=== PATIENT | female | born 1955 | race Caucasian/White ===

== ENCOUNTER 2016-05-16 10:02 | Outpatient (CLI) | payer OTHER ==
[2016-05-16] MEDS ORDERED: REGADENOSON 0.4 MG/5 ML SYRINGE IVP ONE (13:26)
== END 2016-05-16 10:03 | disposition home or self-care (01) ==
DX: I10 Essential (primary) hypertension (principal); E78.2 Mixed hyperlipidemia; R06.00 Dyspnea, unspecified; Z01.812 Encounter for preprocedural laboratory examination
CPT/HCPCS: 78452; 93017; A9500; J2785

== ENCOUNTER 2016-05-30 12:13 | Outpatient (CLI) | payer OTHER | END 2016-05-30 12:14 | disposition home or self-care (01) | DX: R60.0 Localized edema (principal) ==

== ENCOUNTER 2016-10-28 13:24 | Outpatient (CLI) | payer OTHER ==
--- NOTE | 2016-10-31 16:47 | Mammography Report ---
DIGITAL SCREENING MAMMOGRAM: 10/28/2016 CLINICAL INDICATION: A 61-year-old with history of late childbearing, for screening. COMPARISON: 08/2015, 06/2014, 04/2013, 03/2012, 10/2010, 10/2009, 08/2008, 07/2007, 07/2006. TECHNIQUE: Routine CC and MLO projections were obtained of the breasts. Bilateral laterally exaggera francisca craniocaudal views. FINDINGS: The breasts again demonstrate heterogeneously dense fibroglandular parenchyma bilaterally. Punctate, typically benign calcifications are present. No suspicious masses, clustered microcalcific ations, or regions of architectural distortion are identified. IMPRESSION: BENIGN FINDINGS. RECOMMENDATION: ROUTINE ANNUAL SCREENING UNLESS OTHERWISE CLINICALLY INDICATED. BIRADS CATEGORY 2-BENIGN FINDINGS. STANDARD QUALIFYING STATEMENTS 1. This examination was reviewed with the aid of Computer-Aided Detection (CAD). 2. A negative or benign imaging report should not delay biopsy if clinically suspicious findings are present. Consider surgical consultation if warranted. More than 5% of cancers are not identified by i maging. 3. Dense breasts may obscure an underlying neoplasm. JOB #: [id number] EXT JOB #:[id number]
== END 2016-10-28 13:25 | disposition home or self-care (01) ==
LOC: DI 13:24
PROVIDERS: ATTEND Obstetrics & Gynecology
DX: Z12.31 Encounter for screening mammogram for malignant neoplasm of breast (principal)
CPT/HCPCS: 77067

== ENCOUNTER 2017-10-31 15:36 | Outpatient (CLI) | payer OTHER ==
--- NOTE | 2017-11-02 16:27 | Mammography Report ---
Procedure Date: 10/31/2017 Accession Number: [id number] / [id number] Procedure: MGN - Screening Mammo Dig Bilat CPT Code: FULL RESULT: EXAM: Screening Mammo Dig Bilat DATE: 10/31/2017 3:51 PM CLINICAL HISTORY: 62-year-old female with history of late childbearing an early menses presents for screening mammogram. TECHNIQUE: Bilateral CC and MLO views were obtained. COMPARISON: 10/28/2016, 08/19/2015, 06/17/2014, 04/18/2013. FINDINGS: The breasts demonstrate heterogeneously dense fibroglandular parenchyma bilaterally. No suspicious masses, clustered microcalcifications, or regions of architectural distortion are identified. IMPRESSION: Negative examination RECOMMENDATION: Routine annual screening unless otherwise clinically indicated. BIRADS CATEGORY 1: Negative STANDARD QUALIFYING STATEMENTS: 1. This examination was reviewed with the aid of Computer-Aided Detection (CAD). 2. A negative or benign imaging report should not delay biopsy if clinically suspicious findings are present. Consider surgical consultation if warrented. More than 5% of cancers are not identified by imaging. 3. Dense breasts may obscure an underlying neoplasm.
== END 2017-10-31 15:37 | disposition home or self-care (01) ==
LOC: DI.N 15:36
PROVIDERS: ATTEND Obstetrics & Gynecology
DX: Z12.31 Encounter for screening mammogram for malignant neoplasm of breast (principal)
CPT/HCPCS: 77067

== ENCOUNTER 2018-02-19 08:36 | Outpatient (CLI) | payer OTHER ==
[2018-02-19 08:49] LABS: BASOPHILS # (AUTO) 0.1 10^3/uL (0.0-0.1); BASOPHILS % (AUTO) 1.2 %; EOSINOPHILS # (AUTO) 0.1 10^3/uL (0.0-0.7); EOSINOPHILS % (AUTO) 2.3 %; HGB - HEMOGLOBIN 13.7 g/dL (12.0-16.0); LYMPHOCYTES # (AUTO) 1.8 10^3/uL (1.5-3.5); LYMPHOCYTES % (AUTO) 29.3 %; MEAN CORPUSCULAR HEMOGLOBIN 30.1 pg (27.0-31.0); MEAN CORPUSCULAR HGB CONC 33.7 g/dL (32.0-36.0); MEAN CORPUSCULAR VOLUME 89.2 fL (81.0-99.0); MEAN PLATELET VOLUME 7.3 fL (7.9-10.8); MONOCYTES # (AUTO) 0.5 10^3/uL (0.0-1.0); NEUTROPHILS # (AUTO) 3.5 10^3/uL (1.5-6.6); NEUTROPHILS % (AUTO) 58.2 %; PLT - PLATELET COUNT 329 10^3/uL (130-450); RED BLOOD COUNT 4.54 10^6/uL (4.20-5.40); RED CELL DISTRIBUTION WIDTH 14.3 % (12.0-15.0)
[2018-02-19 09:06] LABS: ALBUMIN 4.2 g/dL (3.2-5.5); ALBUMIN/GLOBULIN RATIO 1.3 (1.0-2.2); ALKALINE PHOSPHATASE 69 IU/L (42-121); ALT ALANINE AMINOTRANSFERASE 17 IU/L (10-60); AST ASPARTATE AMINOTRANSFERASE 20 IU/L (10-42); BILIRUBIN,TOTAL 0.7 mg/dL (0.2-1.0); BUN - BLOOD UREA NITROGEN 19 mg/dL (6-20); CALCIUM 9.1 mg/dL (8.5-10.3); CARBON DIOXIDE - CO2 28 mmol/L (21-32); CHLORIDE 103 mmol/L (101-111); CHOL/HDL RATIO 3.5 (<4.4); CHOLESTEROL 241 mg/dL; CREATININE 0.8 mg/dL (0.4-1.0); GFR - MDRD 72 (>89); GLUCOSE 116 mg/dL (70-100); HDL CHOLESTEROL 69 mg/dL; LDL CHOLESTEROL,CALCULATED 143 mg/dL; LDL/HDL RATIO 2.1 (<4.4); SODIUM 139 mmol/L (135-145); TOTAL PROTEIN 7.4 g/dL (6.7-8.2); VLDL CHOLESTEROL 29 mg/dL
[2018-02-19 09:16] LABS: HB2 TOTAL 14.6 g/dL; HEMOGLOBIN A1C 0.64 g/dL; HEMOGLOBIN A1C % 6.2 % (4.6-6.2)
== END 2018-02-19 08:37 | disposition home or self-care (01) ==
LOC: LAB 08:36
PROVIDERS: ATTEND Internal Medicine
DX: E88.81 Metabolic syndrome and other insulin resistance (principal); E78.5 Hyperlipidemia, unspecified; I10 Essential (primary) hypertension; Z79.899 Other long term (current) drug therapy
CPT/HCPCS: 36415; 80053; 80061; 83036; 83721; 84443; 85025

== ENCOUNTER 2018-09-26 11:49 | Day surgery (SDC) | payer MEDICARE, OTHER ==
[2018-09-26] MEDS ORDERED: LACTATED RINGERS 1,000 ML IV ONE (12:43)
[2018-09-26] MEDS ORDERED: fentaNYL 250 MCG/5 ML VIAL IVP ONE (13:32)
[2018-09-26] MEDS ORDERED: MIDAZOLAM 2 MG/2 ML VIAL IVP ONE (13:32)
[2018-09-26 14:38] VITALS: BP 107/62
== END 2018-09-26 11:50 | disposition home or self-care (01) ==
LOC: SDS 11:49
PROVIDERS: ATTEND Internal Medicine
PROC: 0DJ08ZZ Inspection of Upper Intestinal Tract, Via Natural or Artificial Opening Endoscopic (ICD-10-PCS; principal; 2018-09-26 13:00)
PROC: 0DJD8ZZ Inspection of Lower Intestinal Tract, Via Natural or Artificial Opening Endoscopic (ICD-10-PCS; 2018-09-26 13:00)
DX: Z12.11 Encounter for screening for malignant neoplasm of colon (principal); K57.30 Diverticulosis of large intestine without perforation or abscess without bleeding; K64.1 Second degree hemorrhoids; K21.9 Gastro-esophageal reflux disease without esophagitis; R13.10 Dysphagia, unspecified
CPT/HCPCS: 43235; G0121; J3010; J7120

== ENCOUNTER 2018-11-08 15:08 | Outpatient (CLI) | payer MEDICARE, OTHER ==
--- NOTE | 2018-11-09 07:15 | Ultrasound Report ---
Reason: DYSURIA, PELVIC PAIN Procedure Date: 11/08/2018 Accession Number: [id number] / [id number] Procedure: US - Pelvic w/Transvaginal CPT Code: FULL RESULT: EXAM: PELVIC ULTRASOUND EXAM DATE: 11/08/2018 03:19 PM CLINICAL HISTORY: Dysuria, pelvic pain. COMPARISON: PELVIC 07/07/2007 9:31 AM. TECHNIQUE: Real-time transabdominal pelvic scan performed to identify the uterus and adnexa and as an overview of other pelvic structures, followed by transvaginal scan to provide greater detail of the uterus and adnexa, with static image documentation. FINDINGS: Uterus: 7.4 x 2.3 x 4.9 cm, volume 44.3 cc. Anteverted position. Normal overall size and echotexture. Masses: None. Endometrium: 2.4 mm. No endometrial mass or polyp. Cervix: Unremarkable. Right Ovary: 2.4 x 0.9 x 1.4 cm, volume 1.7 cc. Normal echotexture and blood flow. Left Ovary: Prominent vessels noted in the left adnexa. Ovary not seen. No adnexal abnormality. Limitation secondary to bowel gas. Free Fluid: None. Other: None. IMPRESSION: 1. No uterine mass. 2. Endometrium measures 2.4 mm in thickness. No mass or polyp. 3. Left ovary not seen. Prominent left adnexal vessels of unclear significance. Normal right ovary and adnexa. RADIA
== END 2018-11-08 15:09 | disposition home or self-care (01) ==
LOC: DI 15:08
PROVIDERS: ATTEND Obstetrics & Gynecology
DX: R30.0 Dysuria (principal); R10.2 Pelvic and perineal pain
CPT/HCPCS: 76830; 76856

== ENCOUNTER 2018-11-08 15:09 | Outpatient (CLI) | payer MEDICARE, OTHER ==
--- NOTE | 2018-11-12 09:03 | Mammography Report ---
Reason: SCREENING MAMMO Procedure Date: 11/08/2018 Accession Number: [id number] / [id number] Procedure: [facility] - Screening Mammo w/[facility]on CPT Code: FULL RESULT: EXAM: Screening Mammo w/E[facility]on DATE: 11/08/2018 4:20 PM CLINICAL HISTORY: Screening encounter. History of early menses and late childbearing. TECHNIQUE: (B) - Bilateral CC and MLO views were obtained. A right laterally exaggerated CC views obtained. COMPARISON: 10/31/2017 through 06/17/2014. PARENCHYMAL PATTERN: (A) - The breast(s) demonstrate(s) scattered fibroglandular densities. FINDINGS: There are no suspicious masses, calcifications, or areas of distortion. IMPRESSION: Negative examination. BI-RADS category 1. RECOMMENDATION: (ANNUAL) - Recommend routine annual screening mammography. BI-RADS CATEGORY: (1) - Negative. STANDARD QUALIFYING STATEMENTS: 1. This examination was not reviewed with the aid of Computer-Aided Detection (CAD). 2. A negative or benign imaging report should not preclude biopsy if clinically suspicious findings are present. 3. Dense breasts may obscure an underlying neoplasm. 4. This examination was reviewed with the aid of 3D breast imaging (tomosynthesis).
== END 2018-11-08 15:10 | disposition home or self-care (01) ==
LOC: DI 15:09
PROVIDERS: ATTEND Obstetrics & Gynecology
DX: Z12.31 Encounter for screening mammogram for malignant neoplasm of breast (principal)
CPT/HCPCS: 77063; 77067

== ENCOUNTER 2019-01-11 10:39 | Outpatient (CLI) | payer MEDICARE, OTHER ==
--- NOTE | 2019-01-11 11:22 | XRAY Report ---
Reason: FRACTURE Procedure Date: 01/11/2019 Accession Number: [id number] / [id number] Procedure: XR - Foot 3 View LT CPT Code: FULL RESULT: EXAM: LEFT FOOT RADIOGRAPHY EXAM DATE: 01/11/2019 10:57 AM. CLINICAL HISTORY: FRACTURE. COMPARISON: None. TECHNIQUE: 1 views. FINDINGS: Bones: On limited single view evaluation, there is a nondisplaced transverse fracture of the left fifth metatarsal base. No other obvious abnormalities on limited evaluation. Joints: Normal. No subluxations. Soft Tissues: Normal. No soft tissue swelling. IMPRESSION: Limited evaluation reveals a nondisplaced transverse fracture of the left fifth metatarsal base. RADIA
== END 2019-01-11 10:40 | disposition home or self-care (01) ==
LOC: DI 10:39
PROVIDERS: ATTEND Orthopaedic Surgery
DX: S92.355A Nondisplaced fracture of fifth metatarsal bone, left foot, initial encounter for closed fracture (principal)

== ENCOUNTER 2019-02-16 12:53 | Emergency (ER) | payer MEDICARE, OTHER ==
[2019-02-16 12:59] VITALS: BP 160/94
[2019-02-16 13:25] LABS: BASOPHILS # (AUTO) 0.1 10^3/uL (0.0-0.1); BASOPHILS % (AUTO) 0.6 %; EOSINOPHILS # (AUTO) 0.1 10^3/uL (0.0-0.7); EOSINOPHILS % (AUTO) 0.8 %; HGB - HEMOGLOBIN 13.5 g/dL (12.0-16.0); LYMPHOCYTES # (AUTO) 1.6 10^3/uL (1.5-3.5); LYMPHOCYTES % (AUTO) 19.2 %; MEAN CORPUSCULAR HEMOGLOBIN 30.3 pg (27.0-31.0); MEAN CORPUSCULAR HGB CONC 32.1 g/dL (32.0-36.0); MEAN CORPUSCULAR VOLUME 94.6 fL (81.0-99.0); MEAN PLATELET VOLUME 8.9 fL (7.9-10.8); MONOCYTES # (AUTO) 0.6 10^3/uL (0.0-1.0); MONOCYTES % (AUTO) 7.3 %; NEUTROPHILS % (AUTO) 71.6 %; PLT - PLATELET COUNT 330 10^3/uL (130-450); RED BLOOD COUNT 4.45 10^6/uL (4.20-5.40); RED CELL DISTRIBUTION WIDTH 14.1 % (12.0-15.0); WHITE BLOOD COUNT 8.4 x10^3/uL (4.8-10.8)
[2019-02-16 13:33] LABS: INR 1.1 (0.8-1.2); PT - PROTHROMBIN TIME 12.2 secs (9.9-12.6)
[2019-02-16 13:47] LABS: ALBUMIN 4.6 g/dL (3.2-5.5); ALBUMIN/GLOBULIN RATIO 1.6 (1.0-2.2); BILIRUBIN,TOTAL 0.5 mg/dL (0.2-1.0); CALCIUM 9.6 mg/dL (8.5-10.3); CREATININE 0.7 mg/dL (0.4-1.0); TOTAL PROTEIN 7.4 g/dL (6.7-8.2)
--- NOTE | 2019-02-16 15:19 | Ultrasound Report ---
Reason: Right leg pain and swelling Procedure Date: 02/16/2019 Accession Number: [id number] / [id number] Procedure: US - Duplex Ext Veins Right CPT Code: Final Report FULL RESULT: EXAM: RIGHT LOWER EXTREMITY VENOUS ULTRASOUND EXAM DATE: 02/16/2019 02:53 PM. CLINICAL HISTORY: Right leg pain and swelling. COMPARISON: None. TECHNIQUE: Real-time sonographic vascular imaging was performed by the optomechanical engineer through the lower extremity utilizing both color-flow and Doppler spectral analysis. Multiple [employer] liqu[employer] sales representative static images were saved for review. FINDINGS: Common Femoral Vein (CFV): Normal. CFV-GSV Junction: Normal. Profunda Femoral Vein (PFV): Normal. Femoral Vein (FV) Prox: Normal. Femoral Vein (FV) Mid: Normal. Femoral Vein (FV) Dist: Normal. Popliteal Vein: Limited evaluation shows no thrombus Posterior Tibial Veins: Limited evaluation shows no thrombus Peroneal Veins: Limited evaluation shows no thrombus Other: 2.1 x 1.6 x 2 cm fluid collection seen in the medial aspect of the right knee. IMPRESSION: 1. No evidence of right lower extremity DVT. 2. 2.1 cm fluid collection in the medial aspect of the knee is of unclear etiology. RADIA
--- NOTE | 2019-02-16 17:01 | ED Physician Documentation ---
History of Present Illness - Stated complaint Stated Complaint: RT LEG PX - Chief complaint Chief Complaint: Ext Problem - Additonal information Additional information: This is a 64-year-old female presents with right leg swelling. She had a metacarpal fracture in the left foot which was treated with a boot, she is now out of the boot, but she noticed some swelling of her right leg for last several days. Her is an orthopedist, and they are both aware of potential symptoms of DVT, given her recent surgery they wanted to make sure she did not have a DVT. She denies any chest pain or shortness of breath. She has never had a blood clot before. She is not on any blood thinners.No fever or redness in the leg Review of Systems Constitutional: denies: Fever Musculoskeletal: reports: Extremity swelling PD PAST MEDICAL HISTORY - Past Medical History Cardiovascular: Hypertension Respiratory: None Endocrine/Autoimmune: None GI: GERD : None HEENT: None Psych: None Musculoskeletal: Osteoarthritis Derm: None - Past Surgical History General: Other Ortho: Hip replacement, Knee replacement, Rotator cuff repair - Present Medications Home Medications: Ambulatory Orders Medication Instructions Recorded Confirmed Enalapril Maleate 10 mg PO DAILY 09/26/18 09/26/18 - Allergies Allergies/Adverse Reactions: Allergies Allergy/AdvReac Type Severity Reaction Status Date / Time No Known Drug Allergies Allergy Verified 02/16/19 12:57 PD ED PE NORMAL - General General: Alert and oriented X 3 - Respiratory Respiratory: No respiratory distress - Derm Derm: Warm and dry - Extremities Extremities: Other (trace edema around the right ankle. No palpable cord or obvious calf tenderness. Mild tednerness in the popliteal fossa. Normal perfusion/brisk capillary refill) - Neuro Neuro: Alert and oriented X 3 - Psych Psych: Normal mood, Normal affect Results - Vitals Vitals: Oxygen O2 Source Room air - Labs Labs: Laboratory Tests 02/16/19 02/16/19 02/16/19 13:20 13:20 13:20 WBC 8.4 RBC 4.45 Hgb 13.5 Hct 42.1 MCV 94.6 MCH 30.3 MCHC 32.1 RDW 14.1 Plt Count 330 MPV 8.9 Neut # (Auto) 6.0 Lymph # (Auto) 1.6 Chester # (Auto) 0.6 Eos # (Auto) 0.1 Baso # (Auto) 0.1 Absolute Nucleated RBC 0.00 Nucleated RBC % 0.0 PT 12.2 INR 1.1 Sodium 141 Potassium 4.5 Chloride 105 Carbon Dioxide 28 Anion Gap 8.0 BUN 23 H Creatinine 0.7 Estimated GFR (MDRD) 84 L Glucose 134 H Calcium 9.6 Total Bilirubin 0.5 AST 17 ALT 17 Alkaline Phosphatase 59 Total Protein 7.4 Albumin 4.6 Globulin 2.8 Albumin/Globulin Ratio 1.6 Lipase 35 - Rads (name of study) DVT US RLE Radiology: Other (No DVT in areas imaged) PD MEDICAL DECISION MAKING - ED course ED course: Pt presents with R leg swelling, on exam this is very mild, no signs of infection. Neurovascularly intact. DVT scan negative. I discussed this result as well as the need for continued follow up and consideration of repeat US in the next 1-2 weeks with her PCP. Patient and her agreed and were discharged home. Departure - Departure Disposition: 01 Home, Self Care Clinical Impression: Right leg swelling Condition: Good Follow-Up: Shamar Yates MD [Primary Care Provider] - Comments: You were seen today for swelling in your right leg. Your ultrasound does not show signs of a blood clot. Please follow-up with your primary care provider, it may be worth getting a repeat ultrasound in 1 to 2 weeks, particularly if you are having any continued symptoms. If you develop any increasing leg swelling, redness, pain, or other concerning symptoms please return to the emergency department Discharge Date/Time: 02/16/19 17:30
== END 2019-02-16 17:30 | disposition home or self-care (01) ==
LOC: ED 12:53
DX: R60.0 Localized edema (principal); Z98.890 Other specified postprocedural states; I10 Essential (primary) hypertension
CPT/HCPCS: 36415; 80053; 83690; 85025; 85610; 99282; 99284

== ENCOUNTER 2019-04-30 13:02 | Outpatient (CLI) | payer MEDICARE, OTHER ==
--- NOTE | 2019-04-30 14:59 | DEXA Report ---
Reason: OSTEOPOROSIS Procedure Date: 04/30/2019 Accession Number: [id number] / [id number] Procedure: DEX - Dexa Spine and/or Hip CPT Code: Final Report FULL RESULT: EXAM: Dexa Spine and/or Hip DATE: 04/30/2019 1:56 PM CLINICAL HISTORY: Postmenopausal TECHNIQUE: Dual energy x-ray absorptiometry (DXA) was performed on a [employer] System. Regions measured are the AP Spine, femoral neck, and if needed forearm. COMPARISON: 08/07/2006 In accordance with the International Society for Clinical Densitometry (ISCD) guidelines, data from previous exams may be reanalyzed using current recommendations and techniques. This is done to allow a more accurate basis for comparison with the current study. FINDINGS: The data for the lumbar spine is as follows: BMD (g/cm/cm) T-SCORE Z-SCORE REGION L1 1.357 1.9 3.1 L2 1.514 2.6 3.8 L3 1.551 2.9 4.1 L4 1.570 3.1 4.3 TOTAL 1.505 2.7 3.9 NOTE: All evaluable vertebrae are used for classification The data for the hip is as follows: BMD (g/cm/cm) T-SCORE Z-SCORE REGION Neck 1.135 0.7 1.9 TOTAL 1.148 1.1 2.1 NOTE: The femoral neck or total proximal femur, whichever is lowest, is used for classification. * Denotes significant change at the 95% confidence level. Denotes dissimilar scan types or analysis methods. IMPRESSION: THE WHO CLASSIFICATION BASED ON THE INTERNATIONAL REFERENCE STANDARD IS NORMAL. THE FRACTURE RISK IS NOT INCREASED. RECOMMENDATION: Patients with diagnosis of osteoporosis or osteopenia should have regular bone mineral density assessment. For those eligible for Medicare, routine testing is allowed once every 2 years. Testing frequency can be increased for patients who have rapidly progressing disease or for those who are receiving medical therapy to restore bone mass. COMMENT: World Health Organization (WHO) definitions for osteoporosis and osteopenia: NORMAL BMD: T-score at -1.0 or higher, fracture risk is low OSTEOPENIA BMD: T-score between -1.0 and -2.5, fracture risk is increased. OSTEOPOROSIS BMD: T-score at -2.5 or lower, fracture risk is high. National Osteoporosis Foundation recommends: 1. Obtain adequate dietary calcium (at least 1200 mg per day) and vitamin D (400-800 international units per day). 2. Participate, as appropriate, in regular weightbearing and muscle-strengthening exercise. 3. Avoid tobacco use and reduce alcohol and caffeine intake. 4. For more detailed information see the website at www.NOF.org.
== END 2019-04-30 13:03 | disposition home or self-care (01) ==
LOC: DI 13:02
PROVIDERS: ATTEND Internal Medicine
DX: Z78.0 Asymptomatic menopausal state (principal)
CPT/HCPCS: 77080

== ENCOUNTER 2020-02-14 12:37 | Outpatient (CLI) | payer MEDICARE, OTHER ==
--- NOTE | 2020-02-17 16:02 | Mammography Report ---
BILATERAL DIGITAL SCREENING MAMMOGRAM 3D/2D: 02/14/2020 CLINICAL: Routine screening. Comparison is made to exams dated: 11/08/2018 mammogram, 10/31/2017 mammogram, 10/28/2016 mammogram, 08/08 mammogram, 06/17/2014 mammogram, and 04/18/2013 mammogram - [facility]. The ti ssue of both breasts is heterogeneously dense. This may lower the sensitivity of mammography. No significant masses, calcifications, or other findings are seen in either breast. There has been no significant interval change. IMPRESSION: NEGATIVE There is no mammographic evidence of malignancy. A 1 year screening mammogram is recommended. This exam was interpreted at Station ID: [id number]. NOTE: For mammograms, a report in lay terms will be sent to the patient. Approximately 15% of breast malignancies will not be visualized mammographically. In the management of a palpable breast mass, a negative mammogram must not discourage biopsy of a clinically suspicious lesion. Electronically Signed By: Sesar Palacio M.D. [email or web address]:02/14/2020 17:05:37 ACR BI-RADS Category 1: Negative 3341F PARENCHYMAL PATTERN: (D) - The breast(s) demonstrate(s) heterogeneously dense fibroglandular richie mayo. BI-RADS CATEGORY: (1) - 1 RECOMMENDATION: (ANNUAL) - Recommend routine annual screening mammography. [id number] 1 year screening LATERALITY: (B)
== END 2020-02-14 12:38 | disposition home or self-care (01) ==
LOC: DI.N 12:37
PROVIDERS: ATTEND Internal Medicine
DX: Z12.31 Encounter for screening mammogram for malignant neoplasm of breast (principal)
CPT/HCPCS: 77063; 77067

== ENCOUNTER 2020-10-07 09:30 | Outpatient (CLI) | payer MEDICARE, OTHER ==
[2020-10-07 12:33] LABS: AST ASPARTATE AMINOTRANSFERASE 17 IU/L (10-42); BUN - BLOOD UREA NITROGEN 22 mg/dL (6-20); CALCIUM 9.5 mg/dL (8.5-10.3); CARBON DIOXIDE - CO2 29 mmol/L (21-32); CHLORIDE 103 mmol/L (101-111); CHOL/HDL RATIO 2.3 (<4.4); CHOLESTEROL 151 mg/dL; CREATININE 0.8 mg/dL (0.4-1.0); GFR - MDRD 72 (>89); GLUCOSE 147 mg/dL (70-100); HDL CHOLESTEROL 66 mg/dL; LDL CHOLESTEROL,CALCULATED 64 mg/dL; POTASSIUM 4.7 mmol/L (3.5-5.0); SODIUM 139 mmol/L (135-145); TRIGLYCERIDES 104 mg/dL; VLDL CHOLESTEROL 21 mg/dL
== END 2020-10-07 09:31 | disposition home or self-care (01) ==
LOC: LAB.N 09:30
PROVIDERS: ATTEND Internal Medicine
DX: I10 Essential (primary) hypertension (principal); E78.2 Mixed hyperlipidemia
CPT/HCPCS: 36415; 80048; 80061; 83721; 84450

== ENCOUNTER 2021-05-07 09:46 | Outpatient (CLI) | payer MEDICARE, OTHER ==
--- NOTE | 2021-05-07 14:41 | DEXA Report ---
PROCEDURE: Dexa Spine and/or Hip INDICATIONS: POST MENOPAUSAL, OSTEOPOROSIS SCREENING, MENOPAUSE TECHNIQUE: Dual energy x-ray absorptiometry (DXA) was performed on a [email or web address] System. Regions measur ed are the AP Spine, femoral neck, and if needed forearm. COMPARISON: 04/30/2019. FINDINGS: Lumbar Spine: Bone Mineral Density 1.510 g/cm/cm,T score 2.7, statistically unchanged since the previous study Left Hip: Bone Mineral Density 1.156 g/cm/cm,T score 1.2, statistically unchanged since the previous study Left Femoral Neck: Bone Mineral Density 1.158 g/cm/cm, T score 0.9. (T score greater or equal to -1.0: NORMAL) (T score from -1.1 to -2.4: OSTEOPENIA) (T score less than or equal to -2.5 to: OSTEOPOROSIS) Impression: Normal bone mineral density, not significantly changed from the most recent prior study. Patients with diagnosis of osteoporosis or osteopenia should have regular bone mineral density assess ment. For those eligible for Medicare, routine testing is allowed once every 2 years. Testing frequ ency can be increased for patients who have rapidly progressing disease or for those who are receivin g medical therapy to restore bone mass. Reviewed by: Sarthak Pyle MD on 05/07/2021 2:40 PM PST Approved by: Sarthak Pyle MD on 05/07/2021 2:40 PM PST Station ID: [id number]
== END 2021-05-07 09:47 | disposition home or self-care (01) ==
LOC: DI 09:46
PROVIDERS: ATTEND Obstetrics & Gynecology
DX: Z13.820 Encounter for screening for osteoporosis (principal); Z78.0 Asymptomatic menopausal state

== ENCOUNTER 2021-06-07 12:54 | Outpatient (CLI) | payer MEDICARE, OTHER ==
--- NOTE | 2021-06-08 11:45 | Mammography Report ---
BILATERAL DIGITAL SCREENING MAMMOGRAM 3D/2D: 06/07/2021 CLINICAL: Routine screening. Comparison is made to exams dated: 02/14/2020 mammogram, 11/08/2018 mammogram, 10/31/2017 mammogram, 10/09 mammogram, 08/19/2015 mammogram, and 06/17/2014 mammogram - [facility]. There are scattered fibroglandular elements in both breasts. No significant masses, calcifications, or other findings are seen in either breast. There has been no significant interval change. IMPRESSION: NEGATIVE There is no mammographic evidence of malignancy. A 1 year screening mammogram is recommended. This exam was interpreted at Station ID: [id number]. NOTE: For mammograms, a report in lay terms will be sent to the patient. Approximately 15% of breast malignancies will not be visualized mammographically. In the management of a palpable breast mass, a negative mammogram must not discourage biopsy of a clinically suspicious lesion. Electronically Signed By: Arely shelton/rodolfo:06/07/2021 13:58:20 ACR BI-RADS Category 1: Negative 3341F PARENCHYMAL PATTERN: (A) - The breast(s) demonstrate(s) scattered fibroglandular densities. BI-RADS CATEGORY: (1) - 1 RECOMMENDATION: (ANNUAL) - Recommend routine annual screening mammography. [id number] 1 year screening LATERALITY: (B)
== END 2021-06-07 12:55 | disposition home or self-care (01) ==
LOC: DI.N 12:54
DX: Z12.31 Encounter for screening mammogram for malignant neoplasm of breast (principal)

== ENCOUNTER 2022-12-20 09:17 | Outpatient (CLI) | payer MEDICARE, OTHER ==
--- NOTE | 2022-12-21 11:32 | Mammography Report ---
BILATERAL DIGITAL SCREENING MAMMOGRAM 3D/2D: 12/20/2022 CLINICAL: Routine screening. Comparison is made to exams dated: 06/07/2021 mammogram, 02/14/2020 mammogram, 11/08/2018 mammogram, 10/09 mammogram, 10/28/2016 mammogram, and 08/19/2015 mammogram - [facility]. There are scattered areas of fibroglandular density in both breasts (category b / 25%-50% glandular t issue). No significant masses, calcifications, or other findings are seen in either breast. There has been no significant interval change. IMPRESSION: NEGATIVE There is no mammographic evidence of malignancy. A 1 year screening mammogram is recommended. Based on the Tyrer Cuzick model (a risk assessment model) the patients lifetime risk is 6.4% and her 10 year risk is 3.8%. According to the ACR, ACS, and NCCN guidelines, an annual breast MRI exam scarlet g with mammogram is recommended if the patients lifetime risk is 20% or greater. This exam was interpreted at Station ID: [id number]. NOTE: For mammograms, a report in lay terms will be sent to the patient. Approximately 15% of breast malignancies will not be visualized mammographically. In the management of a palpable breast mass, a negative mammogram must not discourage biopsy of a clinically suspicious lesion. Electronically Signed By: Tracey cage/rodolfo:12/20/2022 12:08:30 letter sent: No_Letter ACR BI-RADS Category 1: Negative 3341F PARENCHYMAL PATTERN: (A) - The breast(s) demonstrate(s) scattered fibroglandular densities. BI-RADS CATEGORY: (1) - 1 Mammogram [id number] 1 year screening LATERALITY: (B)
== END 2022-12-20 09:18 | disposition home or self-care (01) ==
LOC: DI.N 09:17
PROVIDERS: ATTEND Internal Medicine
DX: Z12.31 Encounter for screening mammogram for malignant neoplasm of breast (principal)